=== PATIENT | female | born 1985 | race Caucasian/White ===

== ENCOUNTER 2017-08-07 05:19 | Observation (INO) | payer OTHER ==
[~2017-08-07] VITALS: Ht 165.1 cm; Wt 89.5 kg
[~2017-08-07 05:19] MED LIST: ADVAIR 250/501 DISK IH; ADVAIR HFA120 INHALA IH; BENADRYL25 MG PO; CEFACLOR ER500 MG PO; CIPRO500 MG PO; CLONIDINE HCL0.1 MG PO; DELTASONE20 M1 PO; DUONEB 2.5-0.5 M3 ML IH; Humibid LA,Mucinex PO; LEVAQUIN750 MG PO; LEVOFLOXACIN500 MG PO; MONTELUKAST SOD10 MG PO; MUCINEX600 MG PO; NICOTINE PATCH1 EAC2 TD; NOHOMEMEDS; PREDNISONE10 MG PO; PREDNISONE20 MG PO; PROVENTIL,2.5 MG/0.5 IH; PROVENTIL,2.5 MG/3 M IH; TRAZODONE HCL50 MG PO; TYLENOL EXTRA500 MG PO; VENTOLIN HFA18 GM IH; Zithromax PO; predniSONE PO
[2017-08-07 06:16] LABS: HEMATOCRIT 44.6 % (36.0-46.0); MCH 29.5 PG (29.0-34.0); MCHC 33.6 G/DL (30.0-36.0); MCV 87.6 FL (83-99); MEAN PLAT.VOLUME 10.2 uM^3 (9.5-12.4); PLATELET COUNT 214 K/uL (156-360); RBC DIS.WIDTH-CV 12.6 % (11.8-14.6); RBC DIS.WIDTH-SD 40.6 % (39-53); RED BLOOD COUNT 5.09 M/uL (3.80-5.20); WHITE BLOOD COUNT 10.4 K/uL (4.1-10.2)
[2017-08-07 06:25] LABS: CHLORIDE 105 mEq/L (99-109); POTASSIUM 3.7 mEq/L (3.7-5.4); SODIUM 136 mEq/L (136-147)
[2017-08-07 06:26] LABS: GLUCOSE 152 mg/dL (70-99)
[2017-08-07 06:28] LABS: ANION GAP 10 MEQ/L (2-14)
[2017-08-07 06:30] LABS: GFR ESTIMATE (CALCULATED) > 59 mL/min/
[2017-08-07 06:31] LABS: UREA NITROGEN (BUN) 12 mg/dL (9-23)
[2017-08-07 06:39] LABS: QUANTITATIVE HCG < 4.0 MIU/ML
[2017-08-07 07:45] VITALS: BP 135/79
[2017-08-07 11:39] VITALS: BP 118/69
[2017-08-07 15:58] VITALS: BP 129/81
[2017-08-07] MEDS ORDERED: PROAIR HFA8.5 GM IH ×2 (16:42→18:40)
[2017-08-07] MEDS ORDERED: AZITHROMYCIN500 M1 PO (16:51)
[2017-08-07] MEDS ORDERED: PREDNISONE10 MG PO (16:51)
== END 2017-08-07 18:58 | disposition home or self-care (01) ==
LOC: EME 05:19 → EDOF 06:12 → ENRESERV 06:16 → 5WEST 07:20
PROVIDERS: Emergency Medicine
DX: J45.41 Moderate persistent asthma with (acute) exacerbation (principal); Z72.0 Tobacco use
CPT/HCPCS: 71010; 80048; 84702; 85027; 94640; 94640 76; 94799; 99202; 99281; 99285; G0378; J1650; J2930